=== PATIENT | female | born 1980 | race Caucasian/White ===

== ENCOUNTER 2017-06-27 09:10 | Inpatient (IN) | payer OTHER ==
[~2017-06-27 09:10] MED LIST: Buffered Lidocaine 0.9% SYRIN* 5 ML/SYR SYRINGE INTRADERM ONE; Dexamethasone IV* 4 MG/ML 1 ML (4 MG) IV SLOW PU ONE; Famotidine IV* 10 MG/ML 2 ML (20 mg) IV ONE
[2017-06-27] MEDS ORDERED: Famotidine IV* 10 MG/ML 2 ML (20 mg) ONE (09:33)
[2017-06-27] MEDS ORDERED: Dexamethasone IV* 4 MG/ML 1 ML (4 MG) ONE (09:33)
[2017-06-27] MEDS ORDERED: Heparin VIAL(*) 5000 UNITS/ML VIAL (FIVE THOUSAND) ONE (09:33)
[2017-06-27] MEDS ORDERED: Clindamycin 900 MG IVPREMIX(* 900 MG/50 ML SDV IV ONE (09:34)
[2017-06-27] MEDS ORDERED: Ciprofloxacin 400MG IVPREMIX(* 400 MG/200 ML BAG ONE (09:34)
[2017-06-27] MEDS ORDERED: Buffered Lidocaine 0.9% SYRIN* 5 ML/SYR SYRINGE ONE (09:34)
[2017-06-27] MEDS ORDERED: fentaNYL* 50 MCG/ML 5 ML VIAL (250 MCG VIAL) ONE (09:52)
[2017-06-27] MEDS ORDERED: Atracurium* 10 MG/ML 10 ML VIAL ONE (09:52)
[2017-06-27] MEDS ORDERED: Midazolam* 1 MG/ML 5 ML VIAL (5 MG) ONE (09:52)
[2017-06-27] MEDS ORDERED: Lidocaine 2% PF * 5 ML VIAL ONE (09:53)
[2017-06-27] MEDS ORDERED: Propofol* 10 MG/ML 20 ML BTL IV PUSH ONE (09:53)
[2017-06-27] MEDS ORDERED: Ondansetron INJ* 2 MG/ML VIAL ONE ×2 (09:53→13:45)
[2017-06-27] MEDS ORDERED: Ketorolac INJ* 30 MG/ML 1 ML VIAL ONE (09:53)
[2017-06-27] MEDS ORDERED: Methylene Blue 0.5 %* 50 MG/10 ML AMP IV ONE (10:26)
[2017-06-27] MEDS ORDERED: Bupivacaine 0.5% SDV PF* 30 ML VIAL ONE ×2 (10:26→11:24)
[2017-06-27] MEDS ORDERED: fentaNYL* 50 MCG/ML 2 ML VIAL (100 MCG VIAL) ONE ×2 (11:25→11:32)
[2017-06-27] MEDS ORDERED: Dextrose 50% Syringe 50 ML* 25 GM/50 ML SYRINGE IV PUSH PRN (12:56)
[2017-06-27] MEDS ORDERED: Scopolamine 1.5 mg* PATCH TRANSDERM PRN (13:02)
[2017-06-27] MEDS ORDERED: DiMENhydriNATE IV* 50 MG/ML VIAL IV PUSH PRN (13:02)
[2017-06-27] MEDS ORDERED: HYDROmorphone INJ* 1 MG/ML CARPUJECT SYRINGE IV PRN (13:02)
[2017-06-27] MEDS ORDERED: fentaNYL* 50 MCG/ML 2 ML VIAL (100 MCG VIAL) IV PRN (13:02)
[2017-06-27] MEDS ORDERED: Ondansetron INJ* 2 MG/ML VIAL IV PRN (13:02)
--- NOTE | 2017-06-27 13:03 | PN ---
Progress Note - Progress Note Date of Service: 06/27/17 Note: Brief Operative Note: Pre-op: Morbid obesity Post-op: Same Procedure: Laparoscopic Leonid-en Y gastric bypass Surgeon: Dr. Damon Dining Server: Momo Medley EBL: <100 cc Anaesthesia: GETA Fluids: 1500 cc crystalloid Catheter: Adams to gravity Drains: None Specimen: None Findings: See dictated op note
[2017-06-27] MEDS ORDERED: Scopolamine 1.5 mg* PATCH ONE (13:45)
[2017-06-27] MEDS: Pantoprazole IV* 40 MG IV SCH (14:36)
[2017-06-27] MEDS: HYDROmorphone INJ* 1 MG/ML CARPUJECT SYRINGE IV PRN ×3 (15:31→21:37)
[2017-06-27] MEDS: Insulin LISPRO* 1 UNITS UNIT SUBCUT SCH ×2 (18:21→23:45)
[2017-06-27] MEDS: Ondansetron INJ* 2 MG/ML VIAL IV PRN (21:40)
[2017-06-28] MEDS: HYDROmorphone INJ* 1 MG/ML CARPUJECT SYRINGE IV PRN ×6 (01:28→21:10)
--- NOTE | 2017-06-28 02:01 | OP ---
CC: Tiff Hernandez NP; Malka Haines MD* OPERATIVE REPORT: DATE OF OPERATION: 06/27/17 - Inpatient, [facility] room 353-01. DATE OF : 76 SURGEON: Dr. Damon. GETTER OPERATOR: FLAVIO Grullon ANESTHESIOLOGIST: Dr. Aldo Campbell. ANESTHESIA: General endotracheal. PRE-OP DIAGNOSIS: Morbid obesity. POST-OP DIAGNOSIS: Morbid obesity. OPERATIVE PROCEDURE: Laparoscopic Leonid-en-Y gastric bypass. ESTIMATED BLOOD LOSS: Minimal. IV FLUIDS: Crystalloids. SPECIMENS: None. DRAINS: None. COMPLICATIONS: None. COUNTS: The instrument, needle, and sponge counts were correct. DESCRIPTION OF PROCEDURE: The patient was brought to the operating room and placed on the table supine. Sequential compression devices were placed on both lower extremities and general anesthesia was administered. The Adams catheter was placed. The abdomen was prepped and draped in the usual sterile fashion and she received appropriate intravenous antibiotics. A time-out was performed. Local anesthetic was infiltrated into the skin and soft tissue prior to making each incision. Pneumoperitoneum was achieved using a transumbilical Veress needle. After insufflating to a pressure 15 mmHg, a 12 mm bladeless trocar was placed in the left upper quadrant and under direct visualization, 12 mm bladeless trocars were placed in the supraumbilical midline and right upper quadrant. 5-mm trocars were placed in the right upper quadrant medially and left upper quadrant laterally. A Abimael liver retractor was placed percutaneously in the subxiphoid position and used to elevate the left lobe of the liver. There were some adhesions of omentum noted down in the right side of the lower abdomen/pelvis. The liver appeared normal as did the gastric anatomy. The fundus of the stomach was mobilized so that the peritoneal attachments to the left ian of the diaphragm were taken down bluntly. Next, a perigastric dissection was undertaken on the lesser curvature of the stomach and the lesser sac was entered. With several firings of a Endo PILAR stapler reyna cartridges, gastric pouch was created approximating 20 to 30 mL volume. The staple lines were noted to be intact and hemostatic. Next, the omentum and transverse colon were retracted cephalad and the ligament of Treitz was identified. The jejunum was measured out for 40 to 50 cm. At this point, the jejunum was sutured to the left lateral staple line on the gastric pouch with interrupted 2-0 silk. Next, a gastrotomy was created in the gastric pouch and the enterotomy in the small bowel and the gastrojejunal anastomosis was created with an Endo PILAR stapler creating the anastomosis which was completed by closing the gastroenterotomy over a 36-Frisian Alhaji tube with running 3-0 Maxon suture. The jejunal loop was divided then to the left of the anastomosis and then the anastomosis was tested with methylene blue dye solution instilled through the orogastric tube with distal occlusion on the Leonid limb. There is no leak identified. The tube was removed and then the Leonid limb was measured out at 75 cm and at this point, a functional end-to-side jejunojejunostomy was performed with an Endo PILAR stapler with a reyna 60 mm cartridge. The common enterotomy was again run close with 3-0 Maxon and anti-obstruction sutures of 3-0 silk were placed proximally and distally at the anastomosis. The mesenteric defect was closed with 3-0 silk in an interrupted [id number] fashion. At the conclusion of the procedure, liver retractor was removed as were all the trocars. Hemostasis was excellent. Carbon dioxide was released. Skin incisions were closed with yanira. Dressings were applied. The patient tolerated the procedure well, was extubated and transferred to recovery in stable condition. [id number]/CPS #: [id number] [facility]
[2017-06-28] MEDS: Ondansetron INJ* 2 MG/ML VIAL IV PRN ×2 (04:52→21:10)
[2017-06-28] MEDS: Insulin LISPRO* 1 UNITS UNIT SUBCUT SCH ×4 (05:36→22:43)
[2017-06-28] MEDS: Heparin VIAL(*) 5000 UNITS/ML VIAL (FIVE THOUSAND) SUBCUT SCH ×3 (05:37→22:43)
--- NOTE | 2017-06-28 10:40 | PN ---
Progress Note - Progress Note Date of Service: 06/28/17 SOAP: Subjective: Some hiccups and nausea but ok with meds. Pain controlled. Just started po. Has been walking. Objective: Vital Signs Temp 98.4 F 06/28/17 07:41 Pulse 82 06/28/17 07:41 Resp 16 06/28/17 08:56 BP 130/69 06/28/17 07:41 Pulse Ox 99 06/28/17 08:00 Gen: lying in bed; NAD Abd: incis with dressings c/d/i; soft; tender at incisions. Intake & Output 06/27/17 06/28/17 06/28/17 18:59 06:59 18:59 Intake Total 1899 1984 Output Total 525 950 400 Balance 1375 1035 -400 Weight 240 lb 12.8 oz Intake: IV Fluids 1899 1984 CIPRO 500MG 200 CLINDAMYCIN 900MG 50 LR 1650 1984 Output: Urine 75 950 400 Adams 450 Laboratory Results - last 24 hr 06/27/17 06/27/17 06/27/17 13:00 18:11 23:37 POC Glucose (mg/dL) 147 H 171 H 147 H 06/28/17 05:34 POC Glucose (mg/dL) 105 H Assessment: POD#1 s/p LRYGB. Doing well. Plan: Clears. Ambulate. Po meds. Home likely tomorrow. D/w pt.
[2017-06-28] MEDS ORDERED: Dextrose 50% Syringe 50 ML* 25 GM/50 ML SYRINGE IV PUSH PRN (13:23)
[2017-06-28] MEDS: Pantoprazole IV* 40 MG IV SCH (13:49)
[2017-06-28] MEDS: HYDROcodone/ACET. 7.5/325 LIQ* 15 ML UDC PO PRN ×2 (13:55→22:42)
[2017-06-28] MEDS: D5W 1/2 NS KCl 20 Meq 1000 ML* 1,000 ML IV SCH ×2 (14:52→23:36)
[2017-06-28] MEDS ORDERED: DOLUTEGRAVIR SODIUM 50 MG PO SCH ×2 (20:15→20:18)
[2017-06-28] MEDS ORDERED: EMTRICITABINE TENOFOVIR ALAFEN PO SCH ×2 (21:00)
[2017-06-29] MEDS: HYDROmorphone INJ* 1 MG/ML CARPUJECT SYRINGE IV PRN ×3 (00:16→06:15)
[2017-06-29] MEDS: Heparin VIAL(*) 5000 UNITS/ML VIAL (FIVE THOUSAND) SUBCUT SCH (05:23)
[2017-06-29] MEDS: HYDROcodone/ACET. 7.5/325 LIQ* 15 ML UDC PO PRN (05:23)
[2017-06-29 07:33] VITALS: BP 126/71
[2017-06-29] MEDS: Insulin LISPRO* 1 UNITS UNIT SUBCUT SCH (09:05)
[2017-06-29] MEDS ORDERED: HYDROcodone/ACET. 7.5/325 LIQ* 15 ML UDC PO PRN (09:16)
--- NOTE | 2017-06-29 11:15 | PN ---
Progress Note - Progress Note Date of Service: 06/29/17 Note: Surgery Progress: S: POD #2. Doing well w/ intake. Pain control is fair w/ HC; using Dilaudid. Nausea only if pain gets too far ahead O: Vital Signs - 8 hr 06/29/17 06/29/17 06/29/17 03:15 04:00 04:15 Temperature 98.1 F Pulse Rate 84 Respiratory 14 16 14 Rate Blood Pressure 131/79 (mmHg) O2 Sat by Pulse 97 Oximetry 06/29/17 06/29/17 06/29/17 05:23 06:15 07:20 Temperature 98.3 F Pulse Rate 77 Respiratory 16 14 16 Rate Blood Pressure 126/71 (mmHg) O2 Sat by Pulse 97 Oximetry 06/29/17 10:07 Temperature Pulse Rate Respiratory 16 Rate Blood Pressure (mmHg) O2 Sat by Pulse Oximetry Intake and Output Last 24 Hours 06/27/17 06/28/17 06/29/17 06/30/17 06:59 06:59 06:59 06:59 Intake Total 3885 2689 820 Output Total 1475 1500 300 Balance 2410 1189 520 Weight 240 lb 12.8 oz Intake: IV Fluids 3885 1894 820 CIPRO 500MG 200 CLINDAMYCIN 900MG 50 D5W 1/2 NS 20 meq KCL 957 820 LR 3635 937 Oral 795 Output: Urine 1025 1500 300 Adams 450 Other: # Bowel Movements 0 Gen: NAD; appears comfortable Heart: reg Lungs: clear Abd: lap sites w/ small areas of dried blood (dsgs removed); BS+; soft; moderate incisional tenderness Extrr: no edema A: s/p lap Leonid en Y gastric bypass, doing well P: home today; instructions reviewed; followup scheduled; she will remain off her Lantus at this point and continue to check her fs glucoses BID and bring record to her f/u.
--- NOTE | 2017-06-29 17:35 | DS ---
AMENDED REPORT NOW INCLUDES COSIGNER DESIGNATION - ESIGNED BEFORE ADJUSTMENTS CC: Tiff Hernandez NP; [facility] Metabolic and Bariatric Surgery * DISCHARGE SUMMARY: DATE OF ADMISSION: 06/27/17 DATE OF DISCHARGE: 06/29/17 ATTENDING PHYSICIAN: Chavez Damon MD * (DICTATED BY FLAVIO MEDRANO) HOSPITAL COURSE: Please refer to admission history and physical for admission details. The patient was taken to the operating room on 06/27/17, and underwent laparoscopic Leonid-en-Y gastric bypass with Dr. Damon. She has had an otherwise uneventful postoperative course. She did have lispro insulin coverage for fingersticks, which over the last 24 hours have ranged from 105 to 155. As of the morning of discharge, the patient is tolerating bariatric clear liquids well. She was passing flatus. PHYSICAL EXAMINATION: Vital signs on the morning of discharge; temperature 98.3 , blood pressure 126/71, pulse 77, respirations 16, room air saturation 97%. General: A well-nourished obese female in no acute distress. She appears comfortable. Skin: Warm and dry. HEENT: Unremarkable. Heart: Regular rate and rhythm. No murmurs. Lungs: Clear to auscultation. Abdomen: Laparoscopic incision sites with a few areas of dried blood on the dressings, which were removed. No evidence of infection or hematoma. Bowel sounds are present. Abdomen: Soft with moderate incisional tenderness to palpation. Extremities: No edema. LABORATORY DATA: Fingersticks as noted above. IMPRESSION: Status posts laparoscopic Leonid-en-Y gastric bypass, doing well. PLAN: Ready for discharge home. We discussed pain management (hydrocodone/ APAP 7.5/325), 15 to 30 cc p.o. q.4-6 hours p.r.n. She will hold her Lantus for now and continue to check fingersticks b.i.d. and bring that record in at her followup, which is scheduled for next week at the [facility]. She will resume her other meds as directed by her primary care provider. FLAVIO MEDRANO [id number]/CPS #: [id number] [place]
[2017-06-30] MEDS ORDERED: Scopolomine PATCH Remove* 1 NOTE MISC PATCH OFF ONE (13:04)
== END 2017-06-29 11:55 | disposition home or self-care (01) | DRG 403 ==
LOC: AA 09:10 → SSU 14:13
PROVIDERS: ADMIT Surgery; ATTEND Surgery
PROC: 0D164ZA Bypass Stomach to Jejunum, Percutaneous Endoscopic Approach (ICD-10-PCS; principal; 2017-06-27 10:30)
DX: E66.01 Morbid (severe) obesity due to excess calories (principal); B20 Human immunodeficiency virus [HIV] disease; E11.40 Type 2 diabetes mellitus with diabetic neuropathy, unspecified; Z90.710 Acquired absence of both cervix and uterus; F32.9 Major depressive disorder, single episode, unspecified; E78.5 Hyperlipidemia, unspecified; R06.6 Hiccough; R11.0 Nausea; Z88.1 Allergy status to other antibiotic agents; Z88.0 Allergy status to penicillin; Z83.3 Family history of diabetes mellitus; Z83.49 Family history of other endocrine, nutritional and metabolic diseases; Z82.0 Family history of epilepsy and other diseases of the nervous system; Z87.891 Personal history of nicotine dependence; Z68.41 Body mass index [BMI] 40.0-44.9, adult
CPT/HCPCS: 43644; A9270-GY; C1776; J0744; J1100; J1170; J1644; J1885; J2250; J2405; J2704; J3010